=== PATIENT | male | born 1985 | race Caucasian/White ===

== ENCOUNTER 2018-05-16 03:36 | Observation (INO) | payer OTHER ==
[~2018-05-16] VITALS: Ht 177.8 cm; Wt 74.5 kg
[~2018-05-16 03:36] MED LIST: BUSP15 PO; Mucinex600 MG PO; Prozac40 MG PO
[2018-05-16 03:59] LABS: Hematocrit 50.1 % (37.0-53.0); Hemoglobin 17.4 g/dL (13.5-17.5); Mean Corpuscular HGB 29.2 pg (26.0-34.0); Mean Corpuscular HGB Conc 34.7 g/dL (31.5-36.5); Mean Corpuscular Volume 84 fL (80-100); Mean Platelet Volume 10.3 fL (9.1-12.4); Platelet Count 281 K/mm3 (150-400); RDW Coefficient Variation 12.1 % (11.7-14.2); Red Blood Cell Count 5.96 M/mm3 (4.30-5.90)
[2018-05-16 04:05] LABS: Calcium, Ionized (POC) 0.79 mmol/L (1.10-1.46); Chloride (POC) 111 mmol/L (98-108); Creatinine (POC) 0.5 mg/dL (0.8-1.3); Glucose (ISTAT POC) 80 mg/dL (70-99); Hemoglobin (POC) 12.6 g/dL (13.5-17.5); Potassium (POC) 2.7 mmol/L (3.5-5.5); Sodium (POC) 146 mmol/L (135-148); Total CO2 (POC) 20 mmol/L (21-32)
[2018-05-16 04:13] LABS: International Normalized Ratio 0.92; Prothrombin Time Results 9.5 Sec (9.7-11.5)
[2018-05-16 04:22] LABS: Alanine Aminotransfer (ALT/SGP 41 U/L (12-78); Albumin, Blood 3.2 g/dL (3.4-5.0); Albumin/Globulin Ratio 0.7 (0.8-1.8); Alk Phos 135 U/L (50-136); Anion Gap 6 mmol/L (6-16); Aspartate Aminotrans (AST/SGOT 51 U/L (12-37); Bilirubin, Total 0.2 mg/dL (0.1-1.0); Blood Urea Nitrogen 21 mg/dL (8-24); Bun/Creatinine Ratio 22.1 (12.0-20.0); CHOL/HDL RATIO 4.3; CO2, Blood 29 mmol/L (21-32); Calcium, Blood 8.7 mg/dL (8.5-10.1); Chloride, Blood 104 mmol/L (98-108); Cholesterol 116 mg/dL (50-200); Creatinine, Blood 0.95 mg/dL (0.60-1.20); Globulin, Blood 4.9 g/dL (2.2-4.0); Glomerular Filtration Rate >60 (60-); Glucose, Blood 103 mg/dL (70-99); HDL Cholesterol 27 mg/dL (>39); LDL/HDL RATIO 1.9; Low Density Lipoprotein Chol 51 mg/dL (0-110); Magnesium, Blood 2.2 mg/dL (1.6-2.4); Potassium, Blood 3.7 mmol/L (3.5-5.5); Sodium, Blood 139 mmol/L (136-145); Total Protein, Blood 8.1 g/dL (6.4-8.2); Triglycerides 189 mg/dL (30-140); Very Low Density Lipoprot Chol 37 mg/dL (6-28)
[2018-05-16 12:19] LABS: Hemoglobin 15.1 g/dL (13.5-17.5); Mean Corpuscular HGB 29.2 pg (26.0-34.0); Mean Corpuscular HGB Conc 34.3 g/dL (31.5-36.5); Mean Corpuscular Volume 85 fL (80-100); Mean Platelet Volume 10.3 fL (9.1-12.4); Platelet Count 249 K/mm3 (150-400); RDW Coefficient Variation 12.2 % (11.7-14.2); RDW Standard Deviation 38.1 fL (35.1-46.3); Red Blood Cell Count 5.18 M/mm3 (4.30-5.90); White Blood Cell Count 15.12 K/mm3 (4.00-11.30)
[2018-05-16 12:39] LABS: U Amphetamine Screen DETECTED; U Barbituate Screen Not Detected; U Benzodiazapine Screen DETECTED; U Cannabinoids Screen DETECTED; U Cocaine Screen Not Detected; U Methadone Screen Not Detected; U Methamphetamine Screen Not Detected
[2018-05-16 12:40] LABS: U Buprenorphine Screen Not Detected; U Opiates Screen Not Detected; U Oxycodone Screen Not Detected; U Phencyclidine Screen Not Detected; U Propoxyphene Screen Not Detected
[2018-05-16 14:07] LABS: BASOPHILS ABSOLUTE MAN 0.15 K/mm3 (0.00-0.23); BASOPHILS PERCENT MAN 1 % (0-2); EOSINOPHILS ABSOLUTE MAN 0.75 K/mm3 (0.00-0.68); EOSINOPHILS PERCENT MAN 5 % (0-6); LYMPHOCYTES % ATYPICAL MANUAL 12 % (0-0); LYMPHOCYTES ABSOLUTE MAN 4.53 K/mm3 (0.84-5.20); LYMPHOCYTES PERCENT MAN 18 % (21-46); MONOCYTES ABSOLUTE MAN 0.45 K/mm3 (0.16-1.47); MONOCYTES PERCENT MAN 3 % (4-13); NEUTROPHILS ABSOLUTE MAN 9.22 K/mm3 (1.96-9.15); SEG NEUTROPHILS PERCENT MAN 61 % (41-73); TOTAL CELLS COUNTED 100
[2018-05-17 04:02] LABS: BASOPHILS ABSOLUTE AUTO 0.11 K/mm3 (0.00-0.23); BASOPHILS PERCENT AUTO 1 % (0-2); EOSINOPHILS ABSOLUTE AUTO 0.52 K/mm3 (0.00-0.68); EOSINOPHILS PERCENT AUTO 3 % (0-6); Hematocrit 44.6 % (37.0-53.0); Hemoglobin 15.2 g/dL (13.5-17.5); IMMATURE GRAN ABSOLUTE AUTO 0.22 K/mm3 (0.00-0.10); IMMATURE GRAN PERCENT AUTO 1 % (0-1); LYMPHOCYTES ABSOLUTE AUTO 3.34 K/mm3 (0.84-5.20); LYMPHOCYTES PERCENT AUTO 20 % (21-46); MONOCYTES ABSOLUTE AUTO 1.68 K/mm3 (0.16-1.47); MONOCYTES PERCENT AUTO 10 % (4-13); Mean Corpuscular HGB 28.8 pg (26.0-34.0); Mean Corpuscular HGB Conc 34.1 g/dL (31.5-36.5); Mean Corpuscular Volume 85 fL (80-100); Mean Platelet Volume 10.2 fL (9.1-12.4); NEUTROPHILS ABSOLUTE AUTO 10.66 K/mm3 (1.96-9.15); NEUTROPHILS PERCENT AUTO 65 % (41-73); Platelet Count 266 K/mm3 (150-400); RDW Coefficient Variation 12.3 % (11.7-14.2); RDW Standard Deviation 37.7 fL (35.1-46.3); Red Blood Cell Count 5.28 M/mm3 (4.30-5.90); White Blood Cell Count 16.53 K/mm3 (4.00-11.30)
[2018-05-17 04:30] LABS: Anion Gap 4 mmol/L (6-16); Blood Urea Nitrogen 13 mg/dL (8-24); Bun/Creatinine Ratio 15.9 (12.0-20.0); CO2, Blood 27 mmol/L (21-32); Calcium, Blood 7.6 mg/dL (8.5-10.1); Chloride, Blood 109 mmol/L (98-108); Creatinine, Blood 0.82 mg/dL (0.60-1.20); Glomerular Filtration Rate >60 (60-); Glucose, Blood 86 mg/dL (70-99); Potassium, Blood 3.7 mmol/L (3.5-5.5); Sodium, Blood 140 mmol/L (136-145)
[2018-05-17] MEDS ORDERED: ACET325 PO (09:46)
[2018-05-17] MEDS ORDERED: CEPH500 PO (09:47)
[2018-05-17] MEDS ORDERED: IBUP800 PO (09:49)
[2018-05-17] MEDS ORDERED: METO25 PO (09:51)
== END 2018-05-17 10:25 | disposition home or self-care (01) ==
LOC: ER 03:36 → ICUW 03:37 → ER 04:28 → ICUW 04:30
PROVIDERS: Emergency Medicine; Internal Medicine; Internal Medicine Cardiovascular Disease
PROC: 4A023N7 Measurement of Cardiac Sampling and Pressure, Left Heart, Percutaneous Approach (ICD-10-PCS; principal; 2018-05-16)
PROC: B2111ZZ Fluoroscopy of Multiple Coronary Arteries using Low Osmolar Contrast (ICD-10-PCS; principal; 2018-05-16)
DX: I21.19 ST elevation (STEMI) myocardial infarction involving other coronary artery of inferior wall (principal); T43.625A Adverse effect of amphetamines, initial encounter; F15.90 Other stimulant use, unspecified, uncomplicated; J02.0 Streptococcal pharyngitis; F17.210 Nicotine dependence, cigarettes, uncomplicated; Z79.899 Other long term (current) drug therapy
CPT/HCPCS: 36415; 80047; 80048; 80053; 80061; 83735; 84484; 85014; 85025; 85027; 85610; 85730; 86850; 86900; 86901; 87430; 93005; 93010; 93306; 93458; 96374; 96376; 99152; 99153; 99285-25; C1769; C1894; G0378; J1644; J1885; J2250; J2405; J3010; J7030; Q9967

== ENCOUNTER 2018-09-19 16:35 | Emergency (ER) | payer OTHER ==
[~2018-09-19] VITALS: Ht 170.2 cm; Wt 79.4 kg
[~2018-09-19 16:35] MED LIST changes: +ACET325 PO; +CEPH500 PO; +IBUP800 PO; +METO25 PO
[2018-09-19] MEDS ORDERED: Lopressor 25 mg25 MG PO (17:28)
[2018-09-19] MEDS ORDERED: MIRT30 PO (17:28)
[2018-09-19] MEDS ORDERED: VENL75ER PO (17:28)
== END 2018-09-19 17:41 | disposition home or self-care (01) ==
LOC: ER 16:35
DX: Z76.0 Encounter for issue of repeat prescription (principal); Z79.899 Other long term (current) drug therapy; F17.210 Nicotine dependence, cigarettes, uncomplicated
CPT/HCPCS: 99281

== ENCOUNTER → 2019-03-07 | Outpatient (CLI) | payer OTHER ==
[~2019-03-07] MED LIST changes: +Lopressor 25 mg25 MG PO; +MIRT30 PO; +VENL75ER PO
[2019-03-08 02:08] LABS: HIV SCREEN 4TH GENERATION WRFX Non Reactive (Non Reactive)
[2019-03-11 02:09] LABS: NEISSERIA GONORRHOEAE, NAA Positive (Negative)
[2019-03-11 08:15] LABS: CHLAMYDIA TRACHOMATIS, NAA Positive (Negative)
== END | disposition home or self-care (01) ==
LOC: LAB EV 10:53 → LAB SHORT 10:53
PROVIDERS: Physician Assistant Surgical
DX: M54.9 Dorsalgia, unspecified (principal); Z72.51 High risk heterosexual behavior
CPT/HCPCS: 86592; 87086; 87389; 87491; 87591

== ENCOUNTER 2022-10-25 10:56 | Emergency (ER) | payer OTHER ==
[~2022-10-25] VITALS: Ht 177.8 cm; Wt 81.7 kg
[2022-10-25] MEDS ORDERED: FLUOXETINE HCL60 MG PO (11:40)
[2022-10-25] MEDS ORDERED: QUET100 PO ×2 (11:40)
[2022-10-25] MEDS ORDERED: HYDHCL25 PO ×2 (11:41→11:50)
[2022-10-25] MEDS ORDERED: QUET200 PO (11:50)
[2022-10-25] MEDS ORDERED: Prozac40 MG PO (11:50)
[2022-10-25] MEDS ORDERED: MIRT30 PO (11:50)
== END 2022-10-25 11:59 | disposition home or self-care (01) ==
LOC: ER 10:56
DX: Z76.0 Encounter for issue of repeat prescription (principal); Z79.899 Other long term (current) drug therapy
CPT/HCPCS: 99281

== ENCOUNTER → 2024-12-31 | Outpatient (CLI) | payer OTHER ==
[~2024-12-31] MED LIST changes: +FLUOXETINE HCL60 MG PO; +HYDHCL25 PO; +QUET100 PO; +QUET200 PO
[2024-12-31 17:56] LABS: Valproic Acid 48.1 ug/mL (50.0-100.0)
== END ==
LOC: LAB 10:21 → LAB SHORT 10:21
PROVIDERS: Nurse Practitioner Family
DX: F39 Unspecified mood [affective] disorder (principal)
CPT/HCPCS: 36415; 80164; 83036